=== PATIENT | female | born 1995 | race Caucasian/White ===

== ENCOUNTER → 2020-12-14 06:00 | Outpatient (CLI) | payer BC, SELFPAY ==
[2020-12-14 07:49] LABS: CREATININE FINGERSTICK 0.75 mg/dL (0.55-1.02); EGFR FINGERSTICK > 60 mL/min (>60)
--- NOTE | 2020-12-14 08:07 | CT_ITS ---
We are attempting to reach an attending provider to discuss findings. An addendum with communication details will be sent when the communication is complete. STUDY: CT CHEST, ABDOMEN T PELVIS WITH CONTRAST REASON FOR EXAM: Female, 25 years old. LYMPHADENOPATHY NIGHT SWEATS RADIATION DOSAGE (If Supplied By Facility): CTDIvol = ( 22.91 ) mGy, DLP = ( 2590.08 ) mGycm TECHNIQUE: Transaxial imaging was performed following intravenous administration of Oral and amp; IV Gastrografin and amp; 100mL Isovue-300. Individualized dose optimization techniques were used for this CT. COMPARISON: No relevant priors. FINDINGS: CHEST Benign-appearing bilateral axillary lymph nodes. The lungs are normal. There is no demonstrated pleural abnormality. Normal heart and pericardium. Normal mediastinum. Normal hilar regions. There is evidence of multiple bilateral intra-arterial pulmonary artery filling defects indicative of bilateral pulmonary emboli. Normal aorta arch and descending thoracic aorta. Normal osseous structures. There is no demonstrated abnormality of the visualized upper abdomen. ABDOMEN The visualized lung bases are unremarkable. The visualized portions of the heart are within normal limits. Normal liver. Normal gallbladder and extrahepatic biliary system. Normal spleen. Normal pancreas. Normal bilateral adrenal glands. Normal right kidney. Normal left kidney. Normal visualized stomach. Normal small intestine. Normal colon. The appendix is visualized and appears normal. Normal abdominal aorta. Normal inferior vena cava. Normal retroperitoneum. Normal abdominal wall. Normal osseous structures. PELVIS Normal urinary bladder. Normal visualized small intestine. Normal visualized colon. There is no pelvic fluid. There is no pelvic lymphadenopathy or mass lesion. Normal visualized pelvic arteries. Normal abdominal wall. Normal osseous structures. CT/CT Chest, Abd, Pel w/Contrast IMPRESSION: Multiple bilateral pulmonary artery emboli. Electronically Signed: Christ Vásquez MD at 13:59 EDT , Service support ,
== END ==
DX: R59.1 Generalized enlarged lymph nodes (principal)
CPT/HCPCS: 71260; 74177; Q9967; A4216